=== PATIENT | male | born 1975 | race Two or more races ===

== ENCOUNTER 2021-05-01 12:40 | Emergency (ER) | payer SELFPAY ==
[~2021-05-01] VITALS: Ht 167.6 cm; Wt 72.6 kg
[2021-05-01] MEDS ORDERED: IBUP-1955 PO (15:55)
--- NOTE | 2021-05-01 16:11 | NUR ---
CALLED [facility] FOR RADIOLOGIST TO READ US. DR. KRAUS IS CURRENTLY READING IT
[2021-05-01] MEDS ORDERED: IBUPROFEN 600 MG TABLET PO ONE (16:30)
[2021-05-01] MEDS ORDERED: IBUPROFEN 600 MG TABLET ONE (16:31)
--- NOTE | 2021-05-01 16:48 | NUR ---
LVM FOR [facility] ABOUT US READING
[2021-05-01 17:03] VITALS: BP 116/74
--- NOTE | 2021-05-01 17:03 | NUR ---
Patient discharged to home in stable condition. Written and verbal after care instructions given. Patient verbalizes understanding of instruction.
== END 2021-05-01 17:04 | disposition home or self-care (01) ==
LOC: ER 12:45
DX: S05.11XA Contusion of eyeball and orbital tissues, right eye, initial encounter (principal); R51.9 Headache, unspecified; Z79.899 Other long term (current) drug therapy; V49.49XA Driver injured in collision with other motor vehicles in traffic accident, initial encounter; Y93.89 Activity, other specified; Y92.488 Other paved roadways as the place of occurrence of the external cause; Y99.8 Other external cause status
CPT/HCPCS: 70450-TC; 70486-TC; 72125-TC